=== PATIENT | female | born 1960 | race Caucasian/White ===

== ENCOUNTER 2020-05-02 18:05 | Emergency (ER) | payer OTHER ==
[2020-05-02 19:33] LABS: BASOPHIL 0.7 % (0-2); EOSINOPHIL 1.4 % (0-5); HCT 41.4 % (37.0-47.0); HGB 14.6 g/dl (12.5-16.0); LYMPHOCYTE 55.8 % (15-48); MCH 30.7 pg (25.0-31.0); MCHC 35.3 g/dL (32.0-36.0); MCV 87.2 fL (78.0-100.0); MONOCYTE 11.1 % (0-12); NRBC 0; PLT 314 K/uL (150-400); RBC 4.75 M/uL (4.20-5.40); RDW 12.3 % (11.5-14.0); WBC 7.6 K/uL (4.0-10.5)
[2020-05-02 19:46] LABS: ALBUMIN 4.2 g/dL (3.4-5.0); BILIRUBIN - TOTAL 0.3 mg/dL (0.2-1.0); BUN/CREAT RATIO (CALC) 12.9 RATIO; CREATININE 0.85 mg/dL (0.51-0.95); GLOBULIN (CALCULATION) 3.4 g/dL; POTASSIUM 2.9 mmol/L (3.5-5.1); TOTAL PROTEIN 7.6 g/dL (6.4-8.2)
[2020-05-02 19:55] LABS: BILIRUBIN NEGATIVE (NEGATIVE); BLOOD TRACE-INTACT Ery/uL (NEGATIVE); CLARITY HAZY (CLEAR); COLOR YELLOW (YELLOW); GLUCOSE (U) TRACE mg/dL (NORMAL); LEUKOCYTES 1+ Leu/uL (NEGATIVE); NITRITE NEGATIVE (NEGATIVE); PROTEIN NEGATIVE (NEGATIVE); SPECIFIC GRAVITY 1.025 (1.001-1.030); UROBILINOGEN 0.2 mg/dL (0.2-1.0)
[2020-05-02 20:00] LABS: BACTERIA 2+; SQUAMOUS EPITHELIAL CELLS 20-50; URINARY RBC RARE
[2020-05-02] MEDS ORDERED: MACROBID100 MG PO (23:42)
== END 2020-05-02 23:55 | disposition home or self-care (01) ==
LOC: FER 18:05
PROVIDERS: Emergency Medicine
DX: R06.4 Hyperventilation (principal); E87.6 Hypokalemia; N39.0 Urinary tract infection, site not specified; R81 Glycosuria
CPT/HCPCS: 36415; 71045; 80053; 81001; 83735; 84484; 85025; 87088; 93005; J0696; J3480; J7040

== ENCOUNTER → 2021-08-04 | Day surgery (SDC) | payer OTHER ==
[~2021-08-04] VITALS: Ht 163.8 cm; Wt 69.2 kg
[~2021-08-04] MED LIST: ASPIRIN325 MG PO; MACROBID100 MG PO; MOBIC7.5 MG PO
[2021-08-04 10:14] LABS: HGB 14.7 g/dl (12.5-16.0); MCH 29.9 pg (25.0-31.0); MCHC 34.2 g/dL (32.0-36.0); MCV 87.4 fL (78.0-100.0); MPV 9.6 fL (6.0-9.5); RBC 4.92 M/uL (4.20-5.40); RDW 12.3 % (11.5-14.0); WBC 4.9 K/uL (4.0-10.5)
[2021-08-04 10:22] LABS: ALBUMIN 3.9 g/dL (3.4-5.0); BILIRUBIN - TOTAL 0.3 mg/dL (0.2-1.0); BUN/CREAT RATIO (CALC) 19.5 RATIO; CREATININE 0.77 mg/dL (0.51-0.95); GLOBULIN (CALCULATION) 3.5 g/dL; POTASSIUM 3.9 mmol/L (3.5-5.1); TOTAL PROTEIN 7.4 g/dL (6.4-8.2)
== END | disposition home or self-care (01) ==
LOC: FAS 09:22
PROVIDERS: Orthopaedic Surgery
DX: S83.231A Complex tear of medial meniscus, current injury, right knee, initial encounter (principal); M17.11 Unilateral primary osteoarthritis, right knee; M79.4 Hypertrophy of (infrapatellar) fat pad; M25.861 Other specified joint disorders, right knee; M84.361D Stress fracture, right tibia, subsequent encounter for fracture with routine healing; X58.XXXA Exposure to other specified factors, initial encounter
CPT/HCPCS: 36415; 80053; J1100; J1885; J2250; J2405; J2704; J7120